=== PATIENT | male | born 1995 | race African-American/Black ===

== ENCOUNTER 2022-11-22 23:51 | Emergency (ER) | payer MEDICAID ==
[~2022-11-22] VITALS: Ht 177.8 cm; Wt 116.1 kg
[2022-11-23 00:06] VITALS: BP 122/81
[2022-11-23] MEDS ORDERED: ACETAMINOPHEN 325MG TABLET PO NR (09:00)
[2022-11-23] MEDS ORDERED: DICL500C MT (10:25)
[2022-11-23] MEDS ORDERED: IBUP-1523 MT (10:25)
[2022-11-23] MEDS ORDERED: TETANUS, DIPHTHERIA, PERTUSSIS VAC/PF 0.5ML (>10YR OLD) IM ONE (10:30)
== END 2022-11-23 11:05 | disposition home or self-care (01) ==
LOC: ER 23:51
DX: L02.511 Cutaneous abscess of right hand (principal)
CPT/HCPCS: 10060; 73130; 90471; 90715; 99284; Z7610